=== PATIENT | male | born 1970 | race Caucasian/White ===

== ENCOUNTER 2020-03-24 15:36 | Emergency (ER) | payer SELFPAY ==
[~2020-03-24] VITALS: Ht 182.9 cm; Wt 79.4 kg
[~2020-03-24 15:36] MED LIST: Bactrim Ds Tab1 EACH PO; CEPH500 PO
[2020-03-24] MEDS ORDERED: IBU600 MG PO (20:01)
== END 2020-03-24 20:40 | disposition home or self-care (01) ==
LOC: ER 15:36
DX: S92.101A Unspecified fracture of right talus, initial encounter for closed fracture (principal); F17.200 Nicotine dependence, unspecified, uncomplicated; Z88.8 Allergy status to other drugs, medicaments and biological substances; X50.1XXA Overexertion from prolonged static or awkward postures, initial encounter; Y93.39 Activity, other involving climbing, rappelling and jumping off; Y92.828 Other wilderness area as the place of occurrence of the external cause
CPT/HCPCS: 73610; 73700; 99283-25